=== PATIENT | male | born 1960 | race Caucasian/White ===

== ENCOUNTER → 2016-09-12 | Outpatient (CLI) | payer OTHER | LOC: FIMAGING 18:48 | PROVIDERS: ATTEND Internal Medicine | DX: M48.02 Spinal stenosis, cervical region (principal); M50.81 Other cervical disc disorders, high cervical region; Q06.9 Congenital malformation of spinal cord, unspecified ==

== ENCOUNTER → 2016-10-01 | Outpatient (CLI) | payer OTHER | LOC: FIMAGING 18:42 | PROVIDERS: ATTEND Internal Medicine | DX: R42 Dizziness and giddiness (principal) ==

== ENCOUNTER → 2016-11-01 | Outpatient (CLI) | payer OTHER | LOC: CIMAGING 13:19 | PROVIDERS: ATTEND Physician Assistant | DX: R42 Dizziness and giddiness (principal) | CPT/HCPCS: 70480-PO ==

== ENCOUNTER → 2016-12-03 | Outpatient (CLI) | payer OTHER ==
[~2016-12-03] MED LIST: IOPAMIDOL (ISOVUE 370) 100 ML BTL IV ONE
== END ==
LOC: CIMAGING 13:26
PROVIDERS: ATTEND Internal Medicine
DX: R42 Dizziness and giddiness (principal); H53.9 Unspecified visual disturbance
CPT/HCPCS: 70496-PO; Q9967